=== PATIENT | female | born 1995 | race American Indian/Alaskan Native ===

== ENCOUNTER 2016-07-01 14:11 | Emergency (ER) | payer MEDICAID ==
[2016-07-01 14:50] VITALS: BP 113/67
[2016-07-01] MEDS ORDERED: DECADRON IM ONE (17:25)
--- NOTE | 2016-07-01 17:29 | Emergency Department Report ---
ED General Adult HPI - General Chief complaint: Chest Pain Stated complaint: SOB/CHEST PAIN Time Seen by Provider: 07/01/16 17:15 Source: patient Mode of arrival: Ambulatory Limitations: No Limitations - History of Present Illness Initial comments: Patient comes in the ER today with complaints of chest pain, cough, nasal congestion for the past week. Patient states that symptoms started when there was a small alert in the area and she thinks it may have started her symptoms. Patient notes a history of asthma but has not been on medicine for such since she was a little girl. Patient states that she is coughing up some yellow phlegm and that the right side of her chest has been uncomfortable when she coughs. Patient denies any night sweats, fevers, chills but does state that she has wheezing from time to time. -: week(s) (1) Location: chest Radiation: non-radiation Consistency: intermittent Improves with: rest Worsens with: other (deep breathing, cough) Associated Symptoms: chest pain, cough. denies: fever/chills, headaches, loss of appetite, nausea/vomiting, rash, seizure, shortness of breath, syncope, weakness Treatments Prior to Arrival: none - Related Data Previous Rx's Medication Instructions Recorded Last Taken Type ALBUTEROL Inhaler [ProAir HFA 2 puff IH QID PRN #1 inhalation 07/01/16 Unknown Rx Inhaler] Amoxicillin 1,000 mg PO BID #40 capsule 07/01/16 Unknown Rx predniSONE [Deltasone] 40 mg PO QDAY #10 tab 07/01/16 Unknown Rx Allergies Allergy/AdvReac Type Severity Reaction Status Date / Time CHICKEN HOTDOGS Allergy Hives Uncoded 07/01/16 14:42 ED Review of Systems ROS: Stated complaint: SOB/CHEST PAIN Other details as noted in HPI Constitutional: denies: chills, fever Eyes: denies: eye pain, eye discharge, vision change ENT: congestion. denies: ear pain, throat pain, dental pain, epistaxis Respiratory: cough, wheezing. denies: shortness of breath, SOB with exertion, SOB at rest Cardiovascular: chest pain. denies: palpitations Endocrine: no symptoms reported Gastrointestinal: denies: abdominal pain, nausea, diarrhea Genitourinary: denies: urgency, dysuria, discharge Musculoskeletal: denies: back pain, joint swelling, arthralgia Skin: denies: rash, lesions Neurological: denies: headache, weakness, paresthesias Psychiatric: denies: anxiety, depression Hematological/Lymphatic: denies: easy bleeding, easy bruising ED Past Medical Hx - Past Medical History Hx Asthma: Yes Additional medical history: SICKLE CELL TRAIT - Surgical History Additional Surgical History: ECTOPIC ? - Social History Smoking Status: Never Smoker Substance Use Type: Alcohol, Marijuana - Medications Home Medications: Home Medications Medication Instructions Recorded Confirmed Last Taken Type ALBUTEROL Inhaler [ProAir HFA 2 puff IH QID PRN #1 inhalation 07/01/16 Unknown Rx Inhaler] Amoxicillin 1,000 mg PO BID #40 capsule 07/01/16 Unknown Rx predniSONE [Deltasone] 40 mg PO QDAY #10 tab 07/01/16 Unknown Rx ED Physical Exam - General Limitations: No Limitations General appearance: alert, in no apparent distress - Head Head exam: Present: atraumatic, normocephalic - Eye Eye exam: Present: normal appearance, PERRL - ENT ENT exam: Present: normal orophraynx, mucous membranes moist, TM's normal bilaterally, normal external ear exam, other (left greater than right nasal turbinate swelling and redness noted) - Neck Neck exam: Present: normal inspection, full ROM. Absent: tenderness, lymphadenopathy - Respiratory Respiratory exam: Present: normal lung sounds bilaterally, wheezes (very faint left lower lobe wheezing noted on inspiration), rhonchi. Absent: respiratory distress, rales - Cardiovascular Cardiovascular Exam: Present: regular rate, normal rhythm. Absent: systolic murmur, diastolic murmur, rubs, gallop - GI/Abdominal GI/Abdominal exam: Present: soft, normal bowel sounds. Absent: distended, tenderness - Extremities Exam Extremities exam: Present: normal inspection - Back Exam Back exam: Present: normal inspection - Neurological Exam Neurological exam: Present: alert, oriented X3 - Psychiatric Psychiatric exam: Present: normal affect, normal mood - Skin Skin exam: Present: warm, dry, intact, normal color. Absent: rash ED Course Vital Signs 07/01/16 14:45 Temperature 98.3 F Pulse Rate 72 Respiratory 17 Rate Blood Pressure 113/67 O2 Sat by Pulse 100 Oximetry ED Medical Decision Making - EKG Data -: EKG Interpreted by Ok EKG shows normal: sinus rhythm Rate: normal, bradycardia - EKG Data Interpretation: no acute changes, normal EKG 07/01/16 17:29 Sinus bradycardia at 55 bpm. T-wave inversion noted in aVR and V1 leads - Radiology Data Radiology results: image reviewed interpreted by me: Increased bronchial markings consistent with bronchitis. No obvious infiltrate noted - Medical Decision Making Patient is nontoxic and hemodynamically stable. Patient has unremarkable EKG noted in the ER. X-ray results reviewed and discussed with patient and family in room. I believe patient's symptoms are more related to upper respiratory infection rather than any cardiac etiology. Patient was given Decadron 10 mg IM in the ER. I will continue patient on outpatient antibiotics as well as prescribe her a rescue inhaler as needed for any wheezing. Patient is stable for discharge and mother and patient are in agreement with treatment plan. Critical care attestation.: If time is entered above; I have spent that time in minutes in the direct care of this critically ill patient, excluding procedure time. ED Disposition Clinical Impression: Sinusitis, Bronchitis, Chest pain Disposition: DISCHARGED TO HOME OR SELFCARE Is pt being admited?: No Does the pt Need Aspirin: No Condition: Good Instructions: Chest Pain (ED), Sinusitis (ED), Chronic Bronchitis (ED) Prescriptions: ALBUTEROL Inhaler [ProAir HFA Inhaler] 2 puff IH QID PRN #1 inhalation PRN Reason: Shortness Of Breath Amoxicillin 1,000 mg PO BID #40 capsule predniSONE [Deltasone] 40 mg PO QDAY #10 tab Referrals: PRIMARY CARE, [Primary Care Provider] - 3-5 Days Forms: Work/School Release Form(ED) Time of Disposition: 18:27
--- NOTE | 2016-07-02 07:30 | XRay Report ---
Chest 2 views: History: Cough, chest pain. Findings: Normal cardiomediastinal silhouette. Trachea is midline. No consolidation, pneumothorax or pleural effusion. Impression: No acute cardiopulmonary findings.
== END 2016-07-01 18:38 | disposition home or self-care (01) ==
LOC: ED 14:11
DX: J40 Bronchitis, not specified as acute or chronic (principal); J32.9 Chronic sinusitis, unspecified; J45.909 Unspecified asthma, uncomplicated; F12.10 Cannabis abuse, uncomplicated; Z91.018 Allergy to other foods
CPT/HCPCS: 71020; 93005; 93010; 96372; 99283; J1100

== ENCOUNTER 2018-04-19 14:26 | Emergency (ER) | payer OTHER, MEDICAID ==
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
[2018-04-19 14:53] VITALS: BP 109/85
--- NOTE | 2018-04-19 15:16 | XRay Report ---
Right shoulder 2 views: History: Pain. Findings: The a.c. joint and the glenohumeral joint appears normal. No soft tissue calcification. No fracture or dislocation. Impression: Essentially negative right shoulder.
--- NOTE | 2018-04-19 15:17 | XRay Report ---
Lumbar spine 2 views: X. History: Pain. Findings: There is scoliosis noted of the lumbar spine with convexity to the right. The apex of scoliosis is at L1-L2. Normal height of vertebral bodies and intervertebral disc. Normal articular surfaces. There is lumbarization noted of the first sacral segment. Impression: Scoliosis. Lumbarization of first sacral segment.
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
== END 2018-04-19 15:48 | disposition home or self-care (01) ==
LOC: ED 14:26
DX: S43.401A Unspecified sprain of right shoulder joint, initial encounter (principal); S20.219A Contusion of unspecified front wall of thorax, initial encounter; J45.909 Unspecified asthma, uncomplicated; V89.2XXA Person injured in unspecified motor-vehicle accident, traffic, initial encounter; Y93.89 Activity, other specified; Y92.89 Other specified places as the place of occurrence of the external cause; Y99.8 Other external cause status
CPT/HCPCS: 72100